=== PATIENT | female | born 1995 | race Caucasian/White ===

== ENCOUNTER 2020-12-26 18:30 | Emergency (ER) | payer OTHER ==
[~2020-12-26] VITALS: Ht 190.5 cm; Wt 103.0 kg
[2020-12-26] MEDS ORDERED: EPIPEN0.3 MG/0.1 IM (20:32)
[2020-12-26] MEDS ORDERED: PREDNISONE 20 M20 M1 PO (20:32)
[2020-12-26] MEDS ORDERED: FAMOTIDINE 20 M20 MG PO (20:32)
[2020-12-26 20:45] VITALS: BP 149/95
== END 2020-12-26 20:45 | disposition home or self-care (01) ==
LOC: M.ERS 18:30
DX: L53.9 Erythematous condition, unspecified (principal); T78.49XA Other allergy, initial encounter; Z88.1 Allergy status to other antibiotic agents; X58.XXXA Exposure to other specified factors, initial encounter